=== PATIENT | male | born 1990 | race Two or more races ===

== ENCOUNTER 2017-10-13 02:07 | Emergency (ER) | payer OTHER ==
[~2017-10-13] VITALS: Ht 188 cm; Wt 120.0 kg
[2017-10-13 06:07] VITALS: BP 119/74
== END 2017-10-13 06:09 | disposition home or self-care (01) ==
LOC: ED 04:21
DX: F10.120 Alcohol abuse with intoxication, uncomplicated (principal)
CPT/HCPCS: 99283